=== PATIENT | male | born 1985 | race Caucasian/White ===

== ENCOUNTER 2021-12-24 08:06 | Outpatient (CLI) | payer OTHER, SELFPAY ==
--- NOTE | 2021-12-24 09:00 | CRLHL7_ITS ---
For Patients: As a result of the Century Cures Act, medical imaging exams and procedure reports are released immediately into your electronic medical record. You may view this report before your referring provider. If you have questions, please contact your health care provider. INDICATION: Left lower quadrant pain TECHNIQUE: CT abdomen and pelvis acquired with IV contrast. COMPARISON: CT abdomen pelvis 05/26/2015 FINDINGS: Lower chest: Unremarkable. Liver: Unremarkable. Spleen: Unremarkable. Pancreas: Unremarkable. Gallbladder and bile ducts: Unremarkable. Kidneys: Subcentimeter left cortical hypodense lesion statistically most likely represent cyst. Otherwise, unremarkable. Adrenal glands: Unremarkable. GI tract: Trace fluid within the distal esophagus. Duodenal diverticulum. Focal narrowing of the distal sigmoid colon on image 131 of series 2. Diverticulosis. Appendix is normal. Vascular structures: Negative. No sign of aneurysm. Lymph nodes: Unremarkable. Miscellaneous: Tiny left fat filled inguinal hernia. Pelvic Organs: Unremarkable. Bones: Unremarkable for age. IMPRESSION: Focal luminal narrowing and wall thickening of the distal sigmoid colon on image 131 of series 2, this could be secondary to peristalsis, consider direct visualization with sigmoidoscopy as clinically indicated to exclude mass. Diverticulosis without definite diverticulitis. There is slight peritoneal thickening adjacent to the left distal colon, however, would favor this is chronic. Please note that all CT scans at this facility use dose modulation, iterative reconstruction, and/or weight-based dosing when appropriate to reduce radiation dose to as low as reasonably achievable. Dictated by Iveth Newell MD @ 12/25/2021 12:44:31 PM (Electronically Signed)
== END 2021-12-24 08:07 | disposition home or self-care (01) ==
LOC: CT 08:07
PROVIDERS: PCP Physician Assistant Medical; Visit Provider Physician Assistant Medical
DX: R10.32 Left lower quadrant pain (principal); K57.90 Diverticulosis of intestine, part unspecified, without perforation or abscess without bleeding
CPT/HCPCS: 74177; Q9967

== ENCOUNTER 2022-01-10 09:16 | Outpatient (CLI) | payer OTHER, SELFPAY | END 2022-01-10 09:17 | disposition home or self-care (01) | LOC: OP CLINIC 09:17 | PROVIDERS: PCP Physician Assistant Medical; Visit Provider Surgery | DX: K57.32 Diverticulitis of large intestine without perforation or abscess without bleeding (principal); K63.5 Polyp of colon; K57.30 Diverticulosis of large intestine without perforation or abscess without bleeding | CPT/HCPCS: 45385; 88305; 99153; J2250; J3010 ==

== ENCOUNTER 2022-03-04 20:06 | Emergency (ER) | payer OTHER, SELFPAY ==
[2022-03-04 20:14] VITALS: BP 138/87; RESP 18; TEMP 37.9; O2SAT 97; BMI 26.5
[2022-03-04 20:25] VITALS: BP 127/77; PULSE 94; RESP 20; O2SAT 98
--- NOTE | 2022-03-04 20:34 | CRLHL7_ITS ---
For Patients: As a result of the Century Cures Act, medical imaging exams and procedure reports are released immediately into your electronic medical record. You may view this report before your referring provider. If you have questions, please contact your health care provider. INDICATION: Left-sided abdomen pain. TECHNIQUE: CT abdomen and pelvis acquired with 91 cc Isovue 370 IV contrast. COMPARISON: December 24, 2021. FINDINGS: Lower chest: Unremarkable. Liver: Unremarkable. Normal in size and attenuation. No suspicious masses. Gallbladder and bile ducts: Unremarkable. No stones or inflammation. No biliary dilatation. Pancreas: Unremarkable. No mass or inflammation. Spleen: Unremarkable. Normal in size. No masses. Adrenal glands: Unremarkable. No nodules. Kidneys: Unremarkable. No suspicious masses, stones, or hydronephrosis. GI tract: There is acute inflammation of 2 separate diverticula in the descending colon and sigmoid colon respectively. No morgan perforation or abscess. Unremarkable small bowel. Normal appendix. Vasculature: Abdominal aorta is normal in caliber. Mesenteric arteries are patent. Lymph nodes: No lymphadenopathy. Peritoneum/Abdominal Wall: Unremarkable. No sign of mass or infiltration. No free air or significant free fluid. Pelvis: Unremarkable. Bones: Unremarkable for age. IMPRESSION: Two separate areas of acute uncomplicated diverticulitis in the descending colon and sigmoid colon respectively. Please note that all CT scans at this facility use dose modulation, iterative reconstruction, and/or weight-based dosing when appropriate to reduce radiation dose to as low as reasonably achievable. Dictated by Gavin Deluca MD @ 03/04/2022 10:05:51 PM (Electronically Signed)
[2022-03-04 20:51] LABS: Basophils Percent Auto 0.2 % (0.0-3.0); Eosinophils Percent Auto 1.4 % (0.0-7.0); Hematocrit 42.3 % (37.0-53.0); Hemoglobin* 14.2 gm/dL (13.5-17.5); Immature Granulocytes Abs Auto 0.01 K/uL (0.00-0.30); Lymphocytes Percent Auto 8.2 % (20-44); Mean Corpuscular HGB Conc 34 gm/dL (32-36); Mean Corpuscular Hemoglobin 29 pg (26-34); Mean Corpuscular Volume 88 fL (80-100); Monocytes Percent Auto 9.1 % (0.0-11.0); Platelet Count* 291 K/uL (140-440); RDW Coefficient of Variation % 12.7 % (11.5-15.5); Red Blood Count 4.83 m/uL (4.30-5.90); White Blood Count* 15.34 K/uL (4.50-11.00)
[2022-03-04 20:57] LABS: Slide Review Reflex No
[2022-03-04 21:07] LABS: Chloride* 104 mmol/L (96-114); Potassium* 3.8 mmol/L (3.6-5.1); Sodium* 136 mmol/L (135-149)
[2022-03-04 21:10] LABS: Carbon Dioxide* 22 mmol/L (20-32); Creatinine* 0.9 mg/dL (0.5-1.5); Est. Creatinine Clearance* 114.91; Estimated Glomerular Filt Rate 112 ml/min
[2022-03-04 21:11] LABS: Blood Urea Nitrogen* 13 mg/dL (5-24); Calcium* 8.7 mg/dL (8.4-10.6); Glucose* 118 mg/dL (60-115)
[2022-03-04 21:14] LABS: C Reactive Protein* 4.4 mg/dL (0.5-1.0)
--- NOTE | 2022-03-04 21:16 | ED_ITS ---
HPI - General Adult General Chief complaint: Abdominal Pain Stated complaint: Left lower abdominal pain Time Seen by Provider: 03/04/22 20:30 History of Present Illness HPI narrative: Pt is a 36 year old gentleman with a history of recurrent diverticulitis who presents with 24 hours of left sided abdominal pain. No blood in his stool. Pt has been eating and drinking without any trouble. No fever. Pain is 6/10 and did not improve with Ibuprofen. Pt had a abnormal CT 2 months ago with multiple divertics. Follow up colonoscopy also in December showed diffuse diverticulosis with small polyps removed. Symptoms are very similar to previous episodes of diverticulitis. Pain is sharp. Related Data Previous Rx's Medication Instructions Recorded metronidazole 500 mg tablet 250 mg PO TID #30 tabs 03/04/22 Allergies Allergy/AdvReac Type Severity Reaction Status Date / Time No Known Drug Allergies Allergy Verified 03/04/22 20:13 Review of Systems Status of ROS: Reports: 10 or more systems reviewed and unremarkable except as noted in History and below [facility] Medical History (Updated 03/04/22 @ 22:22 by Terrance Rodgers MD) Abdominal pain Diverticulitis History of herpes genitalis Social History Narrative: Smoker- quit 2018 Alcohol ingestion of more than 4 drinks/week- approximately 12 drinks per week Chewing tobacco use Does not use illicit drugs Smoking Status: Never smoker Do you use any of these nicotine containing products: None Second hand tobacco smoke exposure: No How often do you have a drink containing alcohol: never How often do you have six or more drinks on one occasion: Never AUDIT-C Alcohol total score: 0 Non-prescribed substance use: denies use service: No Exam Narrative: Exam Narrative: EXAM GENERAL: Patient appears comfortable and well. EYES: No scleral icterus. ENT: Tympanic membranes and oropharynx normal. THYROID: no thyroid nodules or thyromegaly. LYMPH: No supraclavicular or cervical lymphadenopathy. SKIN: Visible skin seen during exam normal or with benign process only. EXT: No dependent lower extremity pedal edema. HEART: Regular rate and rhythm with no murmurs, rubs, or gallops. LUNGS: Clear to auscultation bilaterally with no crackles or wheezes. ABD: mild tenderness noted left side of the abdomen. Positive bowel sounds. No rebound or masses. PSYCH: Good eye contact, speech is not pressured. Const: Vital Signs, click to edit/add: Vital Signs - 24 hr 03/04/22 20:14 03/04/22 20:25 Temperature 100.2 F H Pulse Rate [Pulse Oximeter] 94 Respiratory Rate 18 20 Blood Pressure [Le ft Upper Arm] 138/87 127/77 Pulse Oximetry 97 98 Oxygen Delivery Me thod Room Air Room Air Course Course Hospital Course: Patient seen and examined. Pelvis CBC CRP basic metabolic panel and UA. Reevaluation(s) Reevaluation #1: Pt still feeling well. CT of abd showes diverticulitis without perforation. CBC CRP elevated. Pt states that he does better with Cipro/Flagyl than Augmentin. Pt given first dose of Flagyl now as it is not in instymeds. Cipro put in instymeds. Time: 22:19 Vital Signs Vital signs: Initial Vital Signs Temperature 100.2 F H 03/04/22 20:14 Temperature Source Temporal Artery Scan 03/04/22 20:14 Pulse Rhythm 03/04/22 20:14 Respiratory Rate 18 03/04/22 20:14 Blood Pressure 138/87 03/04/22 20:14 Blood Pressure Mean 104 03/04/22 20:14 Pulse Oximetry 97 03/04/22 20:14 Oxygen Delivery Method 03/04/22 20:14 Vital Signs Temperature 100.2 F H 03/04/22 20:14 Respiratory Rate 18 03/04/22 20:14 Blood Pressure 138/87 03/04/22 20:14 Pulse Oximetry 97 03/04/22 20:14 Oxygen Delivery Method 03/04/22 20:14 Temperature 100.2 F H 03/04/22 20:14 Pulse Rate 94 03/04/22 20:25 Respiratory Rate 20 03/04/22 20:25 Blood Pressure 127/77 03/04/22 20:25 Pulse Oximetry 98 03/04/22 20:25 Oxygen Delivery Method 03/04/22 20:25 Medical Decision Making MDM Narrative Medical decision making narrative: CT and lab reviewed. Previous records reviewed. Pt will be treated as an outpt with Cipro plus Flagyl with close outpt follow up. Differential Diagnosis Differential Diagnosis: Diverticulitis, Appendicitis, Abd Perforation, UTI, Colitis, Kidney Stone Lab Data Labs: Lab Results 03/04/22 03/04/22 Range/Units 20:45 20:45 WBC 15.34 H (4.50-11.00) K/uL RBC 4.83 (4.30-5.90) m/uL Hgb 14.2 (13.5-17.5) gm/dL Hct 42.3 (37.0-53.0) % MCV 88 (80-100) fL MCH 29 (26-34) pg MCHC 34 (32-36) gm/dL RDW Coeff of Deena 12.7 (11.5-15.5) % Plt Count 291 (140-440) K/uL Neut % (Auto) 81.0 H (42.0-72.0) % Lymph % (Auto) 8.2 L (20-44) % [place] % (Auto) 9.1 (0.0-11.0) % Eos % (Auto) 1.4 (0.0-7.0) % Baso % (Auto) 0.2 (0.0-3.0) % Neut # (Auto) 12.40 H (1.7-7.0) K/uL Lymph # (Auto) 1.30 (0.90-2.90) K/uL [place] # (Auto) 1.40 H (0.00-0.90) K/UL Eos # (Auto) 0.20 (0.00-0.50) K/uL Baso # (Auto) 0.00 (0.00-0.30) K/uL Abs Immat Gran (auto) 0.01 (0.00-0.30) K/uL Sodium 136 (135-149) mmol/L Potassium 3.8 (3.6-5.1) mmol/L Chloride 104 (96-114) mmol/L Carbon Dioxide 22 (20-32) mmol/L BUN 13 (5-24) mg/dL Creatinine 0.9 (0.5-1.5) mg/dL Estimated Creat Clear 114.91 Estimated GFR 112 ml/min Glucose 118 H (60-115) mg/dL Calcium 8.7 (8.4-10.6) mg/dL C-Reactive Protein 4.4 H (0.5-1.0) mg/dL Discharge Plan Discharge Clinical Impression: Diverticulitis Condition: Stable Instructions: Diverticulitis (ED) Additional Instructions: Clear diet Cipro in Inst[facility] Flagyl first dose in the ED with subsequent doses at [facility] Follow up with your doctor this coming week. Return if symptoms not controlled at home. Activity Level: No Restrictions Discharge Diet: Clear Liquid Prescriptions: New metronidazole 500 mg tablet 250 mg PO TID Qty: 30 0RF Follow Up/Referrals: Lucille Santiago PA-C [Primary Care Provider] - Stand Alone Forms: Play With Pictures / [employer] Info Instructions
[2022-03-04 22:50] VITALS: BP 126/76; PULSE 88; RESP 20; TEMP 37.2; O2SAT 97
[2022-03-04] MEDS: metroNIDAZOLE 500 MG TABLET PO (22:51)
== END 2022-03-04 23:00 | disposition home or self-care (01) ==
PROVIDERS: Emergency Provider Internal Medicine; PCP Physician Assistant Medical
DX: K57.92 Diverticulitis of intestine, part unspecified, without perforation or abscess without bleeding (principal)
CPT/HCPCS: 36415; 74177; 80048; 85025; 86140; 99284; A9270; Q9967

== ENCOUNTER 2023-03-23 01:53 | Emergency (ER) | payer SELFPAY ==
[2023-03-23 01:59] VITALS: BP 143/87; PULSE 77; RESP 16; TEMP 36.7; O2SAT 98; BMI 25.8
--- NOTE | 2023-03-23 02:30 | ED_ITS ---
HPI - General Adult General Chief complaint: Abdominal Pain Stated complaint: stomach pain Time Seen by Provider: 03/23/23 01:57 Source: patient Mode of arrival: ambulatory Limitations: no limitations History of Present Illness HPI narrative: 37-year-old male presents to the emergency department with a 3 day history of left lower quadrant abdominal pain. Originally started as a feeling of bloating and gas and achiness. Now is becoming more painful. Tried taking 2 Tylenol tablets about 13 hours ago with no significant improvement in his symptoms. Has not tried NSAIDs. No fevers, no vomiting. No blood in his stools. Last bowel movement was earlier this evening, loose but otherwise uncomplicated. No trauma or injury. Had an uncomplicated course of diverticulitis about 1 year ago, CT proven. Did have follow-up colonoscopy as recommended and reports this was normal other than the findings of diverticulitis and a couple of polyps. No family history of GI cancers. He has had no prior abdominal surgeries. No dysuria, not anticoagulated. Prior episode of diverticulitis notes are reviewed. Past medical history benign per his report. No major long-term health problems. No allergies, no long-term medications, nonsmoker. ROS is notable only for the GI symptoms as above, otherwise denies times 12 systems. Related Data Home Medications Medication Instructions Recorded Confirmed valacyclovir 1 gram tablet mg PO TID PRN 03/14/22 03/14/22 Previous Rx's Medication Instructions Recorded metronidazole 500 mg tablet 250 mg (1/2 x 500 mg) PO TID #30 03/04/22 tabs ciprofloxacin HCl 500 mg tablet 500 mg PO Q12H #15 tabs 03/23/23 metronidazole 500 mg tablet 500 mg PO BID #15 tabs 03/23/23 Allergies Allergy/AdvReac Type Severity Reaction Status Date / Time No Known Drug Allergies Allergy Verified 03/14/22 15:48 [facility] Medical History History of herpes genitalis ?Z86.19 - Personal history of other infectious and parasitic diseases (ICD- 10) Diverticulitis ?K57.92 - Diverticulitis of intestine, part unspecified, without perforation or abscess without bleeding (ICD-10) Abdominal pain ?R10.9 - Unspecified abdominal pain (ICD-10) Social History Narrative: Smoker- quit 2018 Alcohol ingestion of more than 4 drinks/week- approximately 12 drinks per week Chewing tobacco use Does not use illicit drugs Smoking Status: Former smoker Do you use any of these nicotine containing products: None Second hand tobacco smoke exposure: No How often do you have a drink containing alcohol: never How often do you have six or more drinks on one occasion: Never AUDIT-C Alcohol total score: 0 Non-prescribed substance use: denies use service: No Exam Const: Vital Signs, click to edit/add: Vital Signs - 24 hr 03/23/23 01:59 Temperature 98.0 F Pulse Rate [Pulse Oximeter] 77 Respiratory Rate 16 Blood Pressure [Ri ght Upper Arm] 143/87 H Pulse Oximetry 98 Oxygen Delivery Me thod Room Air Documenting provider has reviewed patient's vital signs: yes Common normals: no apparent distress General appearance: cooperative, comfortable and well kempt HENMT: Common normals: normocephalic Head and scalp: normocephalic Face and sinus: normal facial exam Mouth: oral and palatal mucosa normal Eye: Common normals: conjunctivae normal General eye: normal appearance of both eyes Conjunctiva: conjunctiva(e) normal Resp: Common normals: normal respiratory effort and clear to auscultation bilaterally Effort & inspection: able to speak in complete sentences Auscultation: clear to auscultation bilaterally Cardio: Common normals: regular rate, regular rhythm, S1 normal heart sound, S2 normal heart sound and no murmurs Rate: regular rate Rhythm: regular rhythm Heart sounds: S1 normal and S2 normal GI: Common normals: Normal to inspection, nondistended, normoactive bowel sounds present, soft to palpation, no hepatosplenomegaly and no masses Palpation: soft and no hepatosplenomegaly Other: Moderate tenderness to left lower quadrant without obvious guarding. Extremity: Common normals: normal to inspection, normal capillary refill and no pedal edema Neuro: Speech: speech normal Gait (neuro): normal gait Motor exam: no movement abnormalities noted Psych: Common normals: speech normal Appearance: well kempt Attitude: engaged Activity/motor behavior: appropriate eye contact Speech: normal speech Attention/concentration: attention grossly intact Memory/cognition: memory grossly intact Insight: insight good Judgement: judgment good Skin: Common normals: no rashes or lesions noted General skin exam: no rashes or lesions noted Course Course ED Course: Counseled patient that he does likely have diverticulitis again. Cannot exclude perforation, hemorrhage, abscess formation without CT scan. Low suspicion for volvulus, obstruction, pancreatitis, urinary infection, kidney stone or other causes of abdominal pain. At this time, he declined CT scan. He was agreeable to some blood work. He would also like to be able to drive himself home. Because of this he will start ciprofloxacin 500 mg p.o. x1, metronidazole 500 mg p.o. x1 and will be given Toradol. He will be given a limited supply of hydrocodone from [email or web address] which he may take once he gets home. Discussed oral antibiotic therapy. Discussed nearly 20% risk of failure for recurrent diverticulitis. He verbalizes understanding of this risk. He will come back to the emergency department if his symptoms are not starting to improve in 48 hours or if there is interval worsening. The alarm symptoms were extensively discussed. Routine labs will be drawn as comparison in case symptoms worsen. I did advise him to take 3 doses for the 1st 24 hours regarding the antibiotics so that he does not have a lapse in coverage. This is still within the appropriate dosing parameters. Starting Monday, he may reduce to twice daily. Reevaluation(s) Time of Reevaluation #1: 02:59 Reevaluation #1: Lab findings reviewed with patient. All as expected. Still consistent with a mild diverticulitis. Does report improvement in pain with Toradol. See instructions for metronidazole and ciprofloxacin as above. Vital Signs Vital signs: Initial Vital Signs Temperature 98.0 F 03/23/23 01:59 Temperature Source Temporal Artery Scan 03/23/23 01:59 Pulse Rate 77 03/23/23 01:59 Pulse Rhythm Regular 03/23/23 01:59 Respiratory Rate 16 03/23/23 01:59 Blood Pressure 143/87 H 03/23/23 01:59 Blood Pressure Mean 105 03/23/23 01:59 Blood Pressure Position Supine 03/23/23 01:59 Pulse Oximetry 98 03/23/23 01:59 Oxygen Delivery Method Room Air 03/23/23 01:59 Vital Signs Temperature 98.0 F 03/23/23 01:59 Pulse Rate 77 03/23/23 01:59 Respiratory Rate 16 03/23/23 01:59 Blood Pressure 143/87 H 03/23/23 01:59 Pulse Oximetry 98 03/23/23 01:59 Oxygen Delivery Method Room Air 03/23/23 01:59 Temperature 98.0 F 03/23/23 01:59 Pulse Rate 77 03/23/23 01:59 Respiratory Rate 16 03/23/23 01:59 Blood Pressure 143/87 H 03/23/23 01:59 Pulse Oximetry 98 03/23/23 01:59 Oxygen Delivery Method Room Air 03/23/23 01:59 Medical Decision Making Lab Data Lab results reviewed: Yes I reviewed the patient's lab results Lab results narrative: Absolute neutrophil count is at the upper limits of normal, elevated CRP noted. Normal lipase and liver enzymes. Labs: Lab Results 03/23/23 Range/Units 02:25 WBC 10.51 (4.50-11.00) K/uL RBC 4.49 (4.30-5.90) m/uL Hgb 13.1 L (13.5-17.5) gm/dL Hct 39.7 (37.0-53.0) % MCV 88 (80-100) fL MCH 29 (26-34) pg MCHC 33 (32-36) gm/dL RDW Coeff of Deena 12.9 (11.5-15.5) % Plt Count 283 (140-440) K/uL Neut % (Auto) 66.4 (42.0-72.0) % Lymph % (Auto) 15.5 L (20-44) % [place] % (Auto) 12.7 H (0.0-11.0) % Eos % (Auto) 4.3 (0.0-7.0) % Baso % (Auto) 0.3 (0.0-3.0) % Neut # (Auto) 6.99 (1.7-7.0) K/uL Lymph # (Auto) 1.60 (0.90-2.90) K/uL [place] # (Auto) 1.30 H (0.00-0.90) K/UL Eos # (Auto) 0.45 (0.00-0.50) K/uL Baso # (Auto) 0.03 (0.00-0.30) K/uL Abs Immat Gran (auto) 0.08 (0.00-0.30) K/uL Imm/Tot Granulo (auto) 0.8 % Sodium 139 (135-149) mmol/L Potassium 3.7 (3.6-5.1) mmol/L Chloride 105 (96-114) mmol/L Carbon Dioxide 26 (20-32) mmol/L Anion Gap 8 (7-15) mEq/L BUN 13 (5-24) mg/dL Creatinine 1.0 (0.5-1.5) mg/dL Estimated Creat Clear 99.18 Estimated GFR 98 ml/min Glucose 87 (60-115) mg/dL Calcium 8.9 (8.4-10.6) mg/dL Total Bilirubin 0.7 (0.1-1.5) mg/dL AST 35 (12-35) U/L ALT 30 (4-50) U/L Alkaline Phosphatase 48 (40-150) U/L C-Reactive Protein 5.1 H (0.5-1.0) mg/dL Total Protein 6.9 (6.0-8.3) g/dL Albumin 4.1 (3.3-5.0) g/dL Lipase 55 (23-300) U/L Discharge Plan Discharge Clinical Impression: Diverticulitis Patient Disposition: Home, Self-Care Condition: Stable Instructions: Diverticulitis (DC) Additional Instructions: As we discussed, you seem to have another bout of diverticulitis. Together we discussed the risks and benefits of doing a CT scan. I would recommended that you have declined for now. This is certainly reasonable. It does put the burden of watching closely back on you, however. This will take a couple of days to start to improve. But if you are not noticing any improvement after 48 hours and especially P start running high fevers, have persistent vomiting, bloody stools or are getting very weak and sick, you need to come back to the emergency department. For pain I recommend Tylenol 1000 mg every 6 hours and or ibuprofen 600 mg every 6 hours. I do not think that ibuprofen will cause or worsen your condition. I have given you a limited supply of hydrocodone. Un fortunately, the vending machine only stocks this small quantity size. Use these sparingly if the pain is very bothersome. You have been given your 1st dose of antibiotics here in the emergency department. Please brain picker the remaining days from your local pharmacy. Just for today, you will take the medication 3 times daily rather than twice. This is safe to do with this dosage. Try to space your doses 8 hours apart as best as possible for and then the remaining days, just take twice daily, 12 hours apart. I recommended clear liquid diet for the 1st 24 hours, then advancing as you start to feel better. There is certainly could be another cause for your pain, but I would not know this without the CT scan. If things are worsening after 48 hours, please come back to the emergency department. Otherwise, finish appear antibiotics as instructed. There is a 20% chance that this may need hospitalization and or additional treatment once your antibiotics are completed. Because of this, I want you to make a follow-up appointment with her primary care doctor in 5 days. This will be to recheck your symptoms and determine if further treatment is needed. Activity Level: Activity as Tolerated Discharge Diet: Clear Liquid Prescriptions: New metronidazole 500 mg tablet 500 mg PO BID Qty: 15 0RF ciprofloxacin HCl 500 mg tablet 500 mg PO Q12H Qty: 15 0RF No Action valacyclovir 1 gram tablet PO TID PRN metronidazole 500 mg tablet 250 mg PO TID Qty: 30 0RF Follow Up/Referrals: Lucille Santiago PA-C [Primary Care Provider] - Stand Alone Forms: [employer] Info Instructions
[2023-03-23 02:32] LABS: Basophils Absolute Auto 0.03 K/uL (0.00-0.30); Basophils Percent Auto 0.3 % (0.0-3.0); Eosinophils Absolute Auto 0.45 K/uL (0.00-0.50); Eosinophils Percent Auto 4.3 % (0.0-7.0); Hematocrit 39.7 % (37.0-53.0); Hemoglobin* 13.1 gm/dL (13.5-17.5); Immature Granulocytes Abs Auto 0.08 K/uL (0.00-0.30); Immature Granulocytes Pct Auto 0.8 %; Lymphocytes Percent Auto 15.5 % (20-44); Mean Corpuscular HGB Conc 33 gm/dL (32-36); Mean Corpuscular Hemoglobin 29 pg (26-34); Mean Corpuscular Volume 88 fL (80-100); Monocytes Percent Auto 12.7 % (0.0-11.0); Neutrophils Absolute Auto 6.99 K/uL (1.7-7.0); Neutrophils Percent Auto 66.4 % (42.0-72.0); Platelet Count* 283 K/uL (140-440); RDW Coefficient of Variation % 12.9 % (11.5-15.5); Red Blood Count 4.49 m/uL (4.30-5.90); White Blood Count* 10.51 K/uL (4.50-11.00)
[2023-03-23 02:36] LABS: Slide Review Reflex No
[2023-03-23] MEDS: metroNIDAZOLE 500 MG TABLET PO (02:39)
[2023-03-23] MEDS: KETOROLAC 30 MG/ML inj IM (02:39)
[2023-03-23] MEDS: CIPROFLOXACIN 500 MG TABLET PO (02:39)
[2023-03-23 02:43] LABS: Chloride* 105 mmol/L (96-114)
[2023-03-23 02:44] LABS: Albumin* 4.1 g/dL (3.3-5.0); Sodium* 139 mmol/L (135-149)
[2023-03-23 02:45] LABS: Potassium* 3.7 mmol/L (3.6-5.1)
[2023-03-23 02:47] LABS: Alkaline Phosphatase* 48 U/L (40-150); Anion Gap 8 mEq/L (7-15); Aspartate Amino Transferase* 35 U/L (12-35); Bilirubin Total* 0.7 mg/dL (0.1-1.5); Carbon Dioxide* 26 mmol/L (20-32); Est. Creatinine Clearance* 99.18; Estimated Glomerular Filt Rate 98 ml/min; Total Protein* 6.9 g/dL (6.0-8.3)
[2023-03-23 02:48] LABS: Alanine Aminotransferase* 30 U/L (4-50); Blood Urea Nitrogen* 13 mg/dL (5-24); Calcium* 8.9 mg/dL (8.4-10.6); Glucose* 87 mg/dL (60-115); Lipase* 55 U/L (23-300)
[2023-03-23 02:50] LABS: C Reactive Protein* 5.1 mg/dL (0.5-1.0)
[2023-03-23 03:05] VITALS: BP 142/78; PULSE 78; RESP 16; TEMP 36.6
== END 2023-03-23 03:05 | disposition home or self-care (01) ==
LOC: ED 02:45
PROVIDERS: Emergency Provider Family Medicine; PCP Physician Assistant Medical
DX: K57.92 Diverticulitis of intestine, part unspecified, without perforation or abscess without bleeding (principal)
CPT/HCPCS: 36415; 80053; 83690; 85025; 86140; 96372; 99284; A9270; J1885

== ENCOUNTER 2024-04-05 10:25 | Outpatient (CLI) | payer SELFPAY | END 2024-04-05 10:26 | disposition home or self-care (01) | LOC: LKVREF 10:25 | PROVIDERS: PCP Physician Assistant Medical; Visit Provider Family Medicine | DX: Z13.220 Encounter for screening for lipoid disorders (principal) | CPT/HCPCS: 80061 ==